=== PATIENT | female | born 1990 | race Caucasian/White ===

== ENCOUNTER 2017-01-19 21:04 | Inpatient (IN) | payer BC ==
[2017-01-19] MEDS: Lactated Ringers 1,000 ML IV SCH ×3 (22:10→23:33)
[2017-01-19] MEDS ORDERED: Methylergonovine 0.2 MG/1 ML Amp IM PRN (22:19)
[2017-01-19] MEDS ORDERED: Sodium Chloride 0.9% 10 ML Syringe FLUSH PRN (22:19)
[2017-01-19] MEDS ORDERED: Water For Irrigation,Sterile 1,000 ML Container IRR PRN (22:19)
[2017-01-19] MEDS ORDERED: Misoprostol 200 MCG Tab PO PRN (22:19)
[2017-01-19] MEDS ORDERED: Lidocaine 1% 50 ML MDV INJECT PRN (22:19)
[2017-01-19] MEDS ORDERED: Nalbuphine 10 MG/1 ML Vial IVPUSH PRN (22:19)
[2017-01-19] MEDS ORDERED: Carboprost Tromethamine 250 MCG/1 ML Amp IM PRN (22:19)
[2017-01-19] MEDS ORDERED: Butorphanol 1 MG/ML SDV IVPUSH PRN (22:19)
[2017-01-19] MEDS ORDERED: Sodium Chloride 0.9% 2.5 ML Syringe FLUSH PRN (22:19)
[2017-01-19] MEDS ORDERED: Oxytocin/0.9 % Sodium Chloride 30 UNIT/500 ML BAG IV SCH (22:30)
[2017-01-19 22:55] LABS: CHLORIDE,CL 108 mmol/L (98-110); SODIUM,NA 137 mmol/L (136-146)
[2017-01-19] MEDS ORDERED: fentaNYL 100 MCG/2 ML SDV ONE (23:32)
[2017-01-19] MEDS ORDERED: Ropivacaine HCl/PF 100 ML ONE (23:34)
[2017-01-19] MEDS ORDERED: Ropivacaine 0.2% 2 MG/ML 20 ML SDV ONE (23:34)
[2017-01-20] MEDS ORDERED: oxyCODONE 5 MG Tab PO PRN (07:03)
[2017-01-20] MEDS ORDERED: Lanolin 100% Cream 7 GM Tube TOP PRN (07:03)
[2017-01-20] MEDS ORDERED: Bisacodyl 10 MG Supp RECTAL PRN (07:03)
[2017-01-20] MEDS ORDERED: Ibuprofen 400 MG Tab PO PRN (07:03)
[2017-01-20] MEDS ORDERED: Witch Hazel Medicated Pads 40/Jar TOP PRN (07:03)
[2017-01-20] MEDS ORDERED: Benzocaine/Menthol 20%-0.5% Spray 78 GM Cannister TOP PRN (07:03)
[2017-01-20] MEDS ORDERED: Docusate Sodium 100 MG Cap PO PRN (07:03)
[2017-01-20] MEDS ORDERED: Acetaminophen 500 MG Tab PO PRN ×2 (07:03)
--- NOTE | 2017-01-20 09:00 | PCM48HPAN ---
Post Anesthesia Note - EVALUATION WITHIN 48HRS OF ANESTHETIC Vital Signs in Normal Range: Yes Patient Participated in Evaluation: Yes Respiratory Function Stable: Yes Airway Patent: Yes Cardiovascular Function Stable: Yes Hydration Status Stable: Yes Pain Control Satisfactory: Yes Nausea and Vomiting Control Satisfactory: Yes Mental Status Recovered: Yes - COMMENTS/OBSERVATIONS Free Text/Narrative:: Denies any complaints at this time.
[2017-01-20] MEDS: Ibuprofen 800 MG Tab PO PRN ×2 (09:38→15:58)
[2017-01-21] MEDS: Ibuprofen 800 MG Tab PO PRN (04:16)
[2017-01-21 09:33] VITALS: BP 112/59
--- NOTE | 2017-01-21 12:04 | PCM.PNPP ---
- General Info Date of Service: 01/21/17 Functional Status: Reports: Pain Controlled, Tolerating Diet, Ambulating, Urinating - Review of Systems General: Denies: Fever, Fatigue, Chills HEENT: Denies: Headaches Pulmonary: Denies: Shortness of Breath, Pleuritic Chest Pain Cardiovascular: Denies: Chest Pain, Palpitations, Dyspnea on Exertion Gastrointestinal: Denies: Abdominal Pain Genitourinary: Denies: Dysuria, Incontinence, Retention Neurological: Denies: Dizziness - General Info Date of Service: 01/21/17 - Patient Data Vital Signs - Most Recent: Last Vital Signs Temp 36.6 C 01/21/17 09:29 Pulse 99 01/21/17 09:29 Resp 16 01/21/17 09:29 BP 112/59 L 01/21/17 09:29 Pulse Ox 97 01/21/17 09:29 Weight - Most Recent: 180 lb Lab Results - Last 24 Hours: Laboratory Results - last 24 hr 01/21/17 Range/Units 04:50 Hgb 10.9 L (12.0-16.0) g/dL Hct 33.4 L (36.0-46.0) % Med Orders - Current: Current Medications Acetaminophen (Tylenol Extra Strength) 500 mg PO Q4H PRN PRN Reason: Pain Acetaminophen (Tylenol Extra Strength) 1,000 mg PO Q4H PRN PRN Reason: Pain Benzocaine/Menthol (Dermoplast Pain Relief 20%-0.5% Cherry) 78 gm TOP ASDIRECTED PRN PRN Reason: Perineal Comfort Measure Last Admin: 01/20/17 14:37 Dose: 78 gm Bisacodyl (Dulcolax) 10 mg RECTAL .ONCE PRN PRN Reason: Constipation Butorphanol Tartrate (Stadol) 1 mg IVPUSH Q1H PRN PRN Reason: Pain Carboprost Tromethamine (Hemabate Ds) 250 mcg IM ASDIRECTED PRN PRN Reason: Post Hemorrhage Docusate Sodium (Colace) 100 mg PO BID PRN PRN Reason: Constipation Emollient Ointment (Lansinoh Hpa) 0 gm TOP ASDIRECTED PRN PRN Reason: Sore Nipples Last Admin: 01/20/17 14:38 Dose: 7 gm Lactated Ringer's (Ringers, Lactated) 1,000 mls @ 150 mls/hr IV ASDIRECTED [facility] Last Admin: 01/19/17 23:33 Dose: 150 mls/hr Oxytocin/Sodium Chloride (Oxytocin 30 Unit/500 Ml-Ns) 30 unit in 500 mls @ 500 mls/hr IV TITRATE [facility] Last Admin: 01/20/17 06:22 Dose: 500 mls/hr Ibuprofen (Motrin) 400 mg PO Q4H PRN PRN Reason: Pain Ibuprofen (Motrin) 800 mg PO Q6H PRN PRN Reason: Pain Last Admin: 01/21/17 04:16 Dose: 800 mg Lidocaine HCl (Xylocaine 1%) 50 ml INJECT .ONCE PRN PRN Reason: Laceration repair Last Admin: 01/20/17 06:38 Dose: 50 ml Methylergonovine Maleate (Methergine) 0.2 mg IM ASDIRECTED PRN PRN Reason: Post Hemorrhage Misoprostol (Cytotec) 200 mcg PO .ONCE PRN PRN Reason: Post Hemorrhage Nalbuphine HCl (Nubain) 10 mg IVPUSH Q1H PRN PRN Reason: Pain (severe 7-10) Oxycodone HCl (Oxycodone) 5 mg PO Q2H PRN PRN Reason: Pain Sodium Chloride (Saline Flush) 10 ml FLUSH ASDIRECTED PRN PRN Reason: Keep Vein Open Sodium Chloride (Saline Flush) 2.5 ml FLUSH ASDIRECTED PRN PRN Reason: Keep Vein Open Sterile Water (Sterile Water For Irrigation) 1,000 ml IRR ASDIRECTED PRN PRN Reason: delivery Last Admin: 01/20/17 06:38 Dose: 1,000 ml Witch Lynette (Tucks) 1 pad TOP ASDIRECTED PRN PRN Reason: comfort care Last Admin: 01/20/17 14:36 Dose: 1 pad Discontinued Medications Fentanyl (Sublimaze) Confirm Administered Dose 100 mcg .ROUTE .STK-MED ONE Stop: 01/19/17 23:33 Ropivacaine (Naropin 0.2%) Confirm Administered Dose 100 mls @ as directed .ROUTE .STK-MED ONE Stop: 01/19/17 23:35 Ropivacaine (Naropin 0.2%) Confirm Administered Dose 20 ml .ROUTE .STK-MED ONE Stop: 01/19/17 23:35 - Infant Interaction Disposition, : in Room with Family Infant Feeding: Attempted ; Nursed Fair/Poor, Bottle Fed Infant, Encouraged to Breastfeed Support Person: - Recovery Exam Fundal Tone: Firm Fundal Level: 1 Fingerbreadths Below Umbilicus Fundal Placement: Midline Lochia Amount: Scant Lochia Color: Rubra/Red Perineum Description: Intact, Minimal Bruising/Swelling Other Perinuem Description: josefina. labial lac., swollen labia Episiotomy/Laceration: Approximated Bladder Status: Voiding Urinary Elimination: Voided - Exam General: Alert, Oriented HEENT: Pupils Equal Neck: Supple Lungs: Clear to Auscultation, Normal Respiratory Effort Cardiovascular: Regular Rate, Regular Rhythm GI/Abdominal Exam: Normal Bowel Sounds Psy/Mental Status: Alert, Normal Affect, Normal Mood - Problem List & Annotations (1) Vacuum extraction, delivered, current hospitalization SNOMED Code(s): 743273311 Code(s): O66.5 - ATTEMPTED APPLICATION OF VACUUM EXTRACTOR AND FORCEPS Status: Acute Current Visit: Yes (2) Shoulder dystocia, delivered SNOMED Code(s): 635210909 Code(s): O66.0 - OBSTRUCTED LABOR DUE TO SHOULDER DYSTOCIA Status: Acute Current Visit: Yes - Problem List Review Problem List Initiated/Reviewed/Updated: Yes - Assessment Assessment:: PPD#1 s/p VAVD, delivered complicated with shoulder dystocia. Patient stable Baby stable- no fractures or neurological deficient documented - Plan Plan:: Discharge instructions reviewed Nothing in the vagina for 6 weeks Continue PNV, May take OTC pain meds Bleeding and infections precautions reviewed Follow up in 6 weeks at [facility]
--- NOTE | 2017-01-23 12:15 | OR ---
SURGEON: SILVER BUTLER DATE OF PROCEDURE: 01/20/2017 PREOPERATIVE DIAGNOSIS: A 26-year-old G1, P0 at 39 weeks, 6 days, admitted in active labor. GBS negative. POSTOPERATIVE DIAGNOSIS: 39w6d , GBS negative Vacuum-assisted vaginal delivery Shoulder dystocia. ESTIMATED BLOOD LOSS: 300 mL. FINDINGS: Live male was delivered at 622am . score 4 and 8. There was a nuchal cord around the neck. A 3-vessel cord was noted. . After delivery of the 's head, a Turtle sign was noted, and McRobert's was done with suprapubic pressure. An attempt was also made to deliver the posterior shoulder. However, the shoulder was delivered with subsequent McRobert's manuever. The placenta was delivered via controlled cord traction. There was bilateral labial laceration that was repaired with 3-0 Monocryl. The rectal exam intact. The account installation specialist was present after delivering the baby. BRIEF HISTORY: This is a 26-year-old G1, P0 at 39 weeks, 6 days, who was an OB clinic patient at [facility]. She came in complaining of contractions. She was admitted in active labor. Exam on admission was 5, 50, -2. Estimated weight was 3,500 g. The patient received epidural. The patient was re-examined again at about 0015 hours. The patient was noted to be at 8, 90, -1. At 0215 hours, the patient was 9, 100% effaced, -1 station. At 0345, the patient was noted to be fully dilated, -1 station. The head was noted to be in OP position. The patient pushed about 2 hours 15 minutes.With maternal exhaustion and poor maternal effort, the patient was offered vacuum-assisted vaginal delivery to facilitate delivery of the head, VE; FD/ 3+. Mother understood the risks,benefits, and alternatives and agreed to proceed with vacuum-assisted vaginal delivery. PROCEDURE The vacuum was placed at the flexion point, and the mother was encouraged to push. With mother's pushing effort and the vacuum applied at the flexion point, the head was delivered. After the head was delivered, the vacuum was then removed from the head. At this point, a Turtle sign was noted with retraction of the head and dystocia of the shoulder diagnosed. I informed nurses of the diagnosis and additional help( Pediatrican , anaesthesia) was called The lower extremities were placed in hyperflexed and abducted position, which is the McRobert's maneuver with one nurse holding each legs. The patient was then instructed to give good pushing with contractions. The perineum was also examined at this time and noticed adequate room with no need for episiotomy. The hand was then placed in to reach for the posterior shoulder; however, the posterior shoulder could not be reached. Subsequently, again McRobert's was done with suprapubic pressure applied above the pubic symphsis to dislodge the shoulders. With the above maneuver the should was delivered followed by the body. nuchal cord was round the neck The cord was clamped and cut and taken to the resuscitation table, where the was then resuscitated. After delivery of the baby, the placenta was delivered via controlled cord traction, and upon delivery of the placenta, the perineum was inspected, and bilateral labial lacerations were noted, which was sutured with 3-0 Monocryl. After the delivery, the rectum was inspected and found to be intact. The EBL for the procedure was 300 mL. All instrument and pad counts were correct x2. The patient was informed of the shoulder dystocia. She voiced understanding of the event. ANNETTA FLEMING /[id number] MTDD
== END 2017-01-21 17:45 | disposition home or self-care (01) | DRG 560 ==
LOC: MW.OBCHECK 21:04 → MW.OB 21:21 → MW.OBCHECK 21:55 → UNDOADMIN 21:56 → MW.OB 21:56 → UNDODISIN 01-21 17:45
PROVIDERS: ADMIT Obstetrics & Gynecology; ATTEND Obstetrics & Gynecology
PROC: 0UQMXZZ Repair Vulva, External Approach (ICD-10-PCS; principal; 2017-01-20)
PROC: 10D07Z6 Extraction of Products of Conception, Vacuum, Via Natural or Artificial Opening (ICD-10-PCS; 2017-01-20)
PROC: 00HU33Z Insertion of Infusion Device into Spinal Canal, Percutaneous Approach (ICD-10-PCS; 2017-01-20)
PROC: 3E0R3BZ Introduction of Anesthetic Agent into Spinal Canal, Percutaneous Approach (ICD-10-PCS; 2017-01-20)
DX: O70.0 First degree perineal laceration during delivery (principal); O66.0 Obstructed labor due to shoulder dystocia; Z37.0 Single live birth; Z3A.39 39 weeks gestation of pregnancy; O69.81X0 Labor and delivery complicated by cord around neck, without compression, not applicable or unspecified; O75.81 Maternal exhaustion complicating labor and delivery
CPT/HCPCS: 01967; 36415; 51702; 59020; 59409; 80053; 85014; 85018; 85027; 85384; 85610; 85730; 86850; 86900; 86901; 88307; A9270-GY; J2590; J7120